=== PATIENT | female | born 1955 | race Caucasian/White ===

== ENCOUNTER 2017-11-10 10:06 | Day surgery (SDC) | payer BC ==
[~2017-11-10] VITALS: Ht 157.5 cm; Wt 65.0 kg
[~2017-11-10 10:06] MED LIST: SERT25TA3 PO
[2017-11-10] MEDS ORDERED: BUPIVACAINE/PF 0.5% ONE (10:44)
[2017-11-10] MEDS ORDERED: LIDOCAINE/PF 1%-EPI 1:200K, 30 ML ONE (10:44)
[2017-11-10] MEDS ORDERED: EPINEPHRINE 1 MG/ML, 1ML ONE (10:44)
[2017-11-10 10:49] VITALS: BP 157/78
[2017-11-10] MEDS ORDERED: FENTANYL PF 250 MCG/5ML ONE (11:39)
[2017-11-10] MEDS ORDERED: MIDAZOLAM 1 MG/ML, 2ML ONE (11:39)
[2017-11-10] MEDS ORDERED: DEXAMETHASONE 4 MG/ML, 1ML ONE (11:45)
[2017-11-10] MEDS ORDERED: CEFAZOLIN 1,000 MG ONE (11:45)
[2017-11-10] MEDS ORDERED: PROPOFOL 10 MG/ML, 20ML ONE (11:45)
[2017-11-10] MEDS ORDERED: ONDANSETRON 2MG/ML, 2ML ONE (11:45)
[2017-11-10] MEDS ORDERED: ACETAMINOPHEN 325 MG TABLET PO PRN (12:00)
[2017-11-10] MEDS ORDERED: FENTANYL PF 100 MCG/2ML IV PRN (12:00)
[2017-11-10] MEDS ORDERED: HYDROmorphone 1 MG/ML, 1ML IV PRN (12:00)
[2017-11-10] MEDS ORDERED: OXYcodone 5 MG/5 ML ORAL.SOL UDC PO PRN (12:00)
[2017-11-10] MEDS ORDERED: ONDANSETRON 2MG/ML, 2ML IV PRN (12:00)
[2017-11-10] MEDS ORDERED: MEPERIDINE/PF 25MG/0.5ML IVPush PRN (12:00)
== END 2017-11-10 14:20 | disposition home or self-care (01) ==
LOC: OUT 10:06
PROVIDERS: ATTEND Orthopaedic Surgery
DX: S83.232A Complex tear of medial meniscus, current injury, left knee, initial encounter (principal); M17.12 Unilateral primary osteoarthritis, left knee; M94.262 Chondromalacia, left knee; Z86.718 Personal history of other venous thrombosis and embolism; X58.XXXA Exposure to other specified factors, initial encounter; Y93.89 Activity, other specified; Y92.89 Other specified places as the place of occurrence of the external cause; Y99.8 Other external cause status
CPT/HCPCS: 29881; 93005; J0171; J0690; J1100; J2250; J2405; J2704; J3010; J3490